=== PATIENT | male | born 1975 | race Caucasian/White ===

== ENCOUNTER 2018-09-11 12:55 | Emergency (ER) | payer OTHER ==
[2018-09-11 13:14] VITALS: BP 140/86; PULSE 78; RESP 18; TEMP 98.1
--- NOTE | 2018-09-11 13:40 | XR ---
EXAMINATION TYPE: XR ankle 3 views complete LT, XR foot 3 views complete LT DATE OF EXAM: 09/11/2018 COMPARISON: NONE HISTORY: 42-year-old male left foot and ankle pain after injury today FINDINGS: Ankle: Ankle mortise is congruent with preservation of the distal tibiofibular overlap. Talar dome is intact . Small posterior and plantar calcaneal spurs. No acute fracture, subluxation, or dislocation seen. Foot: Calcaneal spurs as mentioned above. Bipartite tibial sesamoid. Fragmented appearance to the fibular s esamoid could also be normal variation or sequela of prior injury. No acute fracture, subluxation, or dislocation. Alignment IMPRESSION: Ankle and foot without acute osseous abnormality seen.
--- NOTE | 2018-09-11 13:47 | ED ---
Fall HPI - General Chief Complaint: Fall Stated Complaint: IHS - left foot injury Source: patient Mode of arrival: wheelchair - History of Present Illness Initial Comments: 42-year-old male who denies significant past medical history presents today for chief complaint of left ankle pain. Patient states that he had gotten out of a truck at work stepping onto cement he states there was a crack but caused him to twist his left ankle inward. Patient states he is able to weight-bear after however this was painful. Patient states he is able to ambulate with a limp. Patient denies any numbness tingling loss sensation coolness pallor or inability to range at the left ankle. Patient does admit to pain with range of motion of the left ankle. Patient denies any knee or hip pain denies fall trauma to the head neck or low back. Patient denies any other complaints or injuries of the upper extremities. Remaining review of systems negative upon arrival patient appears well. Patient denies any recent fever, chills, shortness of breath, chest pain, back pain, abdominal pain, nausea or vomiting, numbness or tingling, dysuria or hematuria, constipation or diarrhea, headaches or visual changes, or any other complaints. On arrival patient's vital signs within acceptable limits. Patient no acute distress - Related Data Allergies Allergy/AdvReac Type Severity Reaction Status Date / Time No Known Allergies Allergy Verified 09/11/18 13:11 Review of Systems ROS Statement: Those systems with pertinent positive or pertinent negative responses have been documented in the HPI. ROS Other: All systems not noted in ROS Statement are negative. Past Medical History Past Medical History: No Reported History History of Any Multi-Drug Resistant Organisms: None Reported Additional Past Surgical History / Comment(s): varicose vein, eye surgery Past Psychological History: No Psychological Hx Reported Smoking Status: Never smoker Past Alcohol Use History: Occasional Past Drug Use History: None Reported General Exam - General Exam Comments Initial Comments: General: The patient is awake and alert, in no distress, and does not appear acutely ill. Eye: Pupils are equal, round and reactive to light, extra-ocular movements are intact. No nystagmus. There is normal conjunctiva bilaterally. No signs of icterus. Ears, nose, mouth and throat: There are moist mucous membranes and no oral lesions. Neck: The neck is supple, there is no tenderness or JVD. Cardiovascular: There is a regular rate and rhythm. No murmur, rub or gallop is appreciated. Respiratory: Lungs are clear to auscultation, respirations are non-labored, breath sounds are equal. No wheezes, stridor, rales, or rhonchi. Gastrointestinal: Soft, non-distended, non-tender abdomen without masses or organomegaly noted. There is no rebound or guarding present. No CVA tenderness. Bowel sounds are unremarkable. Musculoskeletal: Upon inspection of the ankles bilaterally. It is soft tissue swelling along the lateral aspect of the left ankle. Pain with patient the lateral malleolus. Normal ROM of the ankles bilaterally however patient complains of discomfort with range of motion of the left ankle. Strength 5/5. Sensation intact of proximal distal to injury equal comparison with the unaffected extremity. DP pulses equal bilaterally 2+. Refill less than 2 seconds. No evidence of foot drop. Compartments soft and compressible. No pain O patient of the proximal tibia fibula. Neurological: A&O x 3. CN II-XII intact, There are no obvious motor or sensory deficits. Coordination appears grossly intact. Speech is normal. Skin: Skin is warm and dry and no rashes or lesions are noted. Psychiatric: Cooperative, appropriate mood & affect, normal judgment. Limitations: no limitations Course Vital Signs 09/11/18 13:12 Temperature 98.1 F Pulse Rate 78 Respiratory 18 Rate Blood Pressure 140/86 O2 Sat by Pulse 95 Oximetry Medical Decision Making - Medical Decision Making Appearing 42-year-old male presenting for left ankle pain physical exam findings consistent with possible sprain. X-ray revealed no signs of acute osseous injury. Patient placed in air stirrup's. Patient given Rice instruction patient is to not return to work until 09/14/2018 and rest ankle. Pt is to be on limited duty for week. And follow-up with primary provider. Patient is neurovascularly intact, no other complaints. I feel patient is stable for discharge with outpatient follow-up with primary care provider and return for worsening symptoms. Altered parameters discussed with patient verbalizes understanding. Discussed case attending provider who is agreeable to plan discharge. Disposition Clinical Impression: Fall, Left ankle sprain Disposition: HOME SELF-CARE Condition: Good Instructions (If sedation given, give patient instructions): Ankle Sprain (DC) , R.I.C.E. Treatment (ED) Additional Instructions: Please use medication as discussed. Please follow-up with family doctor in the next 2 days. Please return to emergency room if the symptoms increase or worsen or for any other concerns. Is patient prescribed a controlled substance at d/c from ED?: No Referrals: Ellis Hernandez MD [Primary Care Provider] - 1-2 days Time of Disposition: 13:46
== END 2018-09-11 14:05 | disposition home or self-care (01) ==
LOC: EC 12:55
DX: S93.402A Sprain of unspecified ligament of left ankle, initial encounter (principal); X50.1XXA Overexertion from prolonged static or awkward postures, initial encounter; Y92.69 Other specified industrial and construction area as the place of occurrence of the external cause; Y99.0 Civilian activity done for income or pay
CPT/HCPCS: 73610; 73630; 99283; 29515; L4350

== ENCOUNTER 2020-11-08 12:52 | Emergency (ER) | payer OTHER ==
[2020-11-08 13:02] VITALS: BP 147/89; PULSE 74; RESP 18; TEMP 98
--- NOTE | 2020-11-08 13:10 | ED ---
Lower Extremity Injury HPI - General Chief Complaint: Extremity Injury, Lower Stated Complaint: IHS - rt foot injury Time Seen by Provider: 11/08/20 13:03 Source: patient, RN notes reviewed Mode of arrival: wheelchair Limitations: no limitations - History of Present Illness Initial Comments: Patient is a 45-year-old male that presents to emergency department with right foot pain after stepping on uneven concrete and rolling his foot. He states the pain as a 3 out of 10 at rest but when he uses or walks she talk to a 6. He declined the need for any pain medication at this time as it is tolerable. He notes he is done a similar thing to his left foot in the recent past. He states that most the pain happens when he inverts his foot. He denied any weakness numbness tingling decreased range of motion or strength chest pain short of breath headache nausea vomiting diarrhea constipation fever fatigue chills. - Related Data Allergies Allergy/AdvReac Type Severity Reaction Status Date / Time No Known Allergies Allergy Verified 11/08/20 13:02 Review of Systems ROS Statement: Those systems with pertinent positive or pertinent negative responses have been documented in the HPI. ROS Other: All systems not noted in ROS Statement are negative. Past Medical History Past Medical History: No Reported History History of Any Multi-Drug Resistant Organisms: None Reported Additional Past Surgical History / Comment(s): varicose vein, eye surgery Past Psychological History: No Psychological Hx Reported Smoking Status: Never smoker Past Alcohol Use History: Occasional Past Drug Use History: None Reported General Exam Limitations: no limitations General appearance: alert, in no apparent distress, obese Head exam: Present: atraumatic, normocephalic, normal inspection Eye exam: Present: normal appearance, PERRL, EOMI. Absent: scleral icterus, conjunctival injection, periorbital swelling Neck exam: Present: normal inspection. Absent: tenderness, meningismus, lymphadenopathy Respiratory exam: Present: normal lung sounds bilaterally. Absent: respiratory distress, wheezes, rales, rhonchi, stridor Cardiovascular Exam: Present: regular rate, normal rhythm, normal heart sounds. Absent: systolic murmur, diastolic murmur, rubs, gallop, clicks Extremities exam: Present: normal inspection, full ROM, normal capillary refill. Absent: tenderness, pedal edema, joint swelling, calf tenderness Neurological exam: Present: alert, oriented X3, CN II-XII intact Psychiatric exam: Present: normal affect, normal mood Skin exam: Present: warm, dry, intact, normal color. Absent: rash Course Vital Signs 11/08/20 12:59 Temperature 98.0 F Pulse Rate 74 Respiratory 18 Rate Blood Pressure 147/89 O2 Sat by Pulse 96 Oximetry Medical Decision Making - Medical Decision Making 45-year-old male with right foot pain. X-rays of the right foot and ankle ordered. Patient declined the need for any pain medication at this time. X-rays negative for any acute fractures or dislocations. Case discussed with Dr. Sam, patient can discharge home - Radiology Data Radiology results: report reviewed, image reviewed Right ankle and foot x-ray: No acute fracture dislocation is evident. Disposition Clinical Impression: Right foot sprain Disposition: HOME SELF-CARE Condition: Stable Instructions (If sedation given, give patient instructions): Foot Sprain (ED) Additional Instructions: Please return to the Emergency Department if symptoms worsen or any other concerns. Take [id number] anti-inflammatories for pain and symptom control. Use as tolerated. Is patient prescribed a controlled substance at d/c from ED?: No Referrals: Monae Pimentel MD [Primary Care Provider] - 1-2 days Time of Disposition: 14:34
--- NOTE | 2020-11-08 14:00 | XR ---
Right ankle and right foot HISTORY: Trauma and pain 2 views of the right ankle, 2 views of the right foot There is a plantar calcaneal spur. Enthesophyte present at the insertion of the Achilles tendon. Ther e is spurring at the intertarsal joints. Soft tissue swelling is present. There is no dislocation. Augustine ne mineralization, joint spaces and alignment are maintained. IMPRESSION: No acute fracture or dislocation is evident.
== END 2020-11-08 14:45 | disposition home or self-care (01) ==
LOC: EC 12:52
DX: S93.601A Unspecified sprain of right foot, initial encounter (principal); W22.8XXA Striking against or struck by other objects, initial encounter
CPT/HCPCS: 99283